=== PATIENT | female | born 1985 | race Caucasian/White ===

== ENCOUNTER 2025-06-02 06:26 | Day surgery (SDC) | payer BC, SELFPAY | END 2025-06-02 10:27 | disposition home or self-care (01) | LOC: GI 06:26 | PROVIDERS: ATTENDING PHYSICIAN Internal Medicine Gastroenterology | DX: R12 Heartburn (principal); K31.7 Polyp of stomach and duodenum; K31.89 Other diseases of stomach and duodenum; K90.0 Celiac disease | CPT/HCPCS: 43239; 88305; 88342 ==

== ENCOUNTER → 2025-07-12 10:28 | Outpatient (REF) | payer BC, SELFPAY | LOC: EMG 10:28 | PROVIDERS: ATTENDING PHYSICIAN Nurse Practitioner Adult Health | DX: R20.0 Anesthesia of skin (principal); R20.2 Paresthesia of skin | CPT/HCPCS: 95886; 95911 ==